=== PATIENT | male | born 1945 | race Caucasian/White ===

== ENCOUNTER 2021-08-15 01:23 | Emergency (ER) | payer OTHER ==
[~2021-08-15] VITALS: Ht 170.2 cm; Wt 77.1 kg
[2021-08-15] MEDS ORDERED: CARVEDILOL ER40 MG (01:31)
[2021-08-15] MEDS ORDERED: LANTUS SOL100 UNIT/1 (01:31)
[2021-08-15] MEDS ORDERED: HYDRODIURIL12.5 MG (01:31)
[2021-08-15] MEDS ORDERED: COZAAR25 MG (01:32)
[2021-08-15] MEDS ORDERED: HUMALOG100 UNIT/1 (01:32)
[2021-08-15] MEDS ORDERED: CHILDREN'S ASPI81 MG (01:32)
[2021-08-15] MEDS ORDERED: ATORVASTATIN CA20 MG (01:33)
[2021-08-15] MEDS ORDERED: OSEL75CA PO (08:54)
== END 2021-08-15 10:33 | disposition home or self-care (01) ==
LOC: ER 01:23
DX: U07.1 COVID-19 (principal); J10.1 Influenza due to other identified influenza virus with other respiratory manifestations; T14.90XA Injury, unspecified, initial encounter; R50.9 Fever, unspecified; R06.02 Shortness of breath

== ENCOUNTER 2021-08-15 11:00 | Outpatient (CLI) | payer OTHER ==
[~2021-08-15 11:00] MED LIST: ATORVASTATIN CA20 MG; CARVEDILOL ER40 MG; CHILDREN'S ASPI81 MG; COZAAR25 MG; HUMALOG100 UNIT/1; HYDRODIURIL12.5 MG; LANTUS SOL100 UNIT/1; OSEL75CA PO
== END 2021-08-15 12:00 | disposition home or self-care (01) ==
LOC: ASH CLINIC 11:00
PROVIDERS: ATTEND General Practice
DX: U07.1 COVID-19 (principal); Z23 Encounter for immunization

== ENCOUNTER 2022-04-22 10:56 | Outpatient (CLI) | payer OTHER | END 2022-04-22 11:04 | disposition home or self-care (01) | LOC: MRI 10:56 | PROVIDERS: ATTEND Psychiatry & Neurology Clinical Neurophysiology | DX: G30.1 Alzheimer's disease with late onset (principal); I63.30 Cerebral infarction due to thrombosis of unspecified cerebral artery; Z86.73 Personal history of transient ischemic attack (TIA), and cerebral infarction without residual deficits | CPT/HCPCS: 70551 ==

== ENCOUNTER 2022-05-14 18:07 | Inpatient (IN) | payer OTHER ==
[~2022-05-14] VITALS: Ht 167.6 cm; Wt 102.1 kg
[2022-05-17] MEDS ORDERED: TAMS0.4C PO (07:03)
[2022-05-17] MEDS ORDERED: LOTREL 5-20 MG1 CAP PO (07:03)
== END 2022-05-17 10:03 | disposition home or self-care (01) | DRG 65 ==
LOC: ER 18:07 → MEDJ 05-15 01:50
PROVIDERS: ADMIT Internal Medicine; ATTEND Internal Medicine
PROC: B345ZZZ Ultrasonography of Bilateral Common Carotid Arteries (ICD-10-PCS; principal; 2022-05-15)
PROC: BW38ZZZ Magnetic Resonance Imaging (MRI) of Head (ICD-10-PCS; 2022-05-15)
DX: I63.89 Other cerebral infarction (principal); I16.9 Hypertensive crisis, unspecified; N17.8 Other acute kidney failure; E87.5 Hyperkalemia; Q18.8 Other specified congenital malformations of face and neck; G51.0 Bell's palsy; I10 Essential (primary) hypertension; G47.33 Obstructive sleep apnea (adult) (pediatric); N40.0 Benign prostatic hyperplasia without lower urinary tract symptoms; Z20.822 Contact with and (suspected) exposure to COVID-19
CPT/HCPCS: 70544

== ENCOUNTER → 2022-08-09 | Outpatient (CLI) | payer OTHER ==
[~2022-08-09] MED LIST changes: +LOTREL 5-20 MG1 CAP PO; +TAMS0.4C PO
== END | disposition home or self-care (01) ==
LOC: RAD 15:31
PROVIDERS: ATTEND Internal Medicine
DX: E11.354 Type 2 diabetes mellitus with proliferative diabetic retinopathy with combined traction retinal detachment and rhegmatogenous retinal detachment (principal); K40.90 Unilateral inguinal hernia, without obstruction or gangrene, not specified as recurrent; K80.20 Calculus of gallbladder without cholecystitis without obstruction; K82.9 Disease of gallbladder, unspecified; K20.90 Esophagitis, unspecified without bleeding; K21.9 Gastro-esophageal reflux disease without esophagitis; E11.319 Type 2 diabetes mellitus with unspecified diabetic retinopathy without macular edema; M15.9 Polyosteoarthritis, unspecified; M51.86 Other intervertebral disc disorders, lumbar region; M54.14 Radiculopathy, thoracic region; M54.50 Low back pain, unspecified

== ENCOUNTER 2022-08-12 09:17 | Outpatient (CLI) | payer OTHER | END 2022-08-12 09:20 | disposition home or self-care (01) | LOC: NUCLEAR 09:17 | PROVIDERS: ATTEND Internal Medicine | DX: E11.354 Type 2 diabetes mellitus with proliferative diabetic retinopathy with combined traction retinal detachment and rhegmatogenous retinal detachment (principal); K40.90 Unilateral inguinal hernia, without obstruction or gangrene, not specified as recurrent; K80.20 Calculus of gallbladder without cholecystitis without obstruction; K52.9 Noninfective gastroenteritis and colitis, unspecified; K21.9 Gastro-esophageal reflux disease without esophagitis; E11.319 Type 2 diabetes mellitus with unspecified diabetic retinopathy without macular edema; M15.9 Polyosteoarthritis, unspecified; M51.86 Other intervertebral disc disorders, lumbar region; M54.14 Radiculopathy, thoracic region; M54.50 Low back pain, unspecified ==

== ENCOUNTER 2022-08-25 11:44 | Outpatient (CLI) | payer OTHER | END 2022-08-25 11:48 | disposition home or self-care (01) | LOC: RAD 11:44 | PROVIDERS: ATTEND Ophthalmology | DX: R07.89 Other chest pain (principal) ==